=== PATIENT | female | born 1990 | race Caucasian/White ===

== ENCOUNTER 2017-06-27 10:55 | Emergency (ER) | payer MEDICAID ==
[2017-06-27] MEDS ORDERED: Dextrose 5%/Lactated Ringer's 1,000 ML IV SCH (11:30)
[2017-06-27 11:38] LABS: BASO % 0.5 % (0.0-2.0); EOS # 0.3 K/uL (0.0-0.7); EOS % 6.6 % (0.0-4.0); HEMATOCRIT 33.5 % (34.0-47.0); LYMPH # 1.5 K/uL (1.0-4.3); LYMPH % 29.6 % (20.0-40.0); MEAN CELL VOLUME 75.2 fL (81.0-99.0); MEAN CORPUSCULAR HEMOGLOBIN 24.2 pg (27.0-31.0); MEAN CORPUSCULAR HGB CONC 32.1 g/dL (33.0-37.0); MONO # 0.6 K/uL (0.0-0.8); MONO % 11.2 % (0.0-10.0); NRBC % 0.1 % (0.0-2.0); RED CELL DISTRIBUTION WIDTH 15.6 % (11.5-14.5); WHITE BLOOD COUNT 5.1 K/uL (4.8-10.8)
[2017-06-27 11:49] LABS: CHLORIDE 105 mmol/L (98-107)
[2017-06-27 11:50] LABS: POTASSIUM 3.3 mmol/L (3.6-5.2); SODIUM 134 mmol/L (132-148)
[2017-06-27 11:52] LABS: ALB/GLOB RATIO 0.8 (1.0-2.1); BILIRUBIN,DIRECT 0.3 mg/dL (0.0-0.4); BILIRUBIN,TOTAL 0.4 mg/dL (0.2-1.3); CARBON DIOXIDE 22 mmol/L (22-30); GFR AFRICAN-AMERICAN > 60; TOTAL PROTEIN 6.5 g/dL (6.3-8.3)
[2017-06-27 11:53] LABS: ALKALINE PHOSPHATASE 154 U/L (38-126); ALT/SGPT 31 U/L (9-52); AST/SGOT 23 U/L (14-36); BLOOD UREA NITROGEN 4 mg/dL (7-17); CALCIUM 7.8 mg/dl (8.6-10.4); GLUCOSE,RANDOM 70 mg/dL (65-105)
--- NOTE | 2017-06-27 12:57 | OBHP ---
Datetime: 06/27/2017 12:56 FHR - Baseline A Provider: 130 Contraction Comments Provider: none Vital Signs Provider: Reviewed; Within Normal Limits NICHD Variability Prov Fetus A: Moderate 6-25bpm NICHD Accel Fetus A IP Provider: [id number] FHR Category Provider Fetus A: Category I Datetime: 06/27/2017 10:58 IP Adm Impression: Term, intrauterine ; No Active Labor; Intact Membranes IP Admit Plan: Observation/Evaluation Admit Comment, IP Provider: Patient is a 27 year old at 39w0d gestation (BRANDO of 07/04/17 based on first trimester US) who presents with painful contractions since last night and LOF this morning. Patient reports that last night, she started to experience painful contractions with this pain radiat ing to her back. She "dealt" with this pain overnight but this morning when getting dressed, she noti neeraj clear fluid in her undergarments and then decided that she should be evaluated. She denies vagina l bleeding and endorses positive movement. She reports no complications with this but does endorse an itchy rash on her lower extremities since she became . She denies fever, chi lls, headache, changes in vision, chest pain, palpitations, SOB, cough, N/V, diarrhea, burning/pain w ith urination, or any seizures. OB History: Patient of Dr. 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 Stable, afebrile 2. Observation and evaluation: No signs of active labor, patient to walk for 30mins and reassess 3. Bilateral LE rash: R/O cholestasis (F/U CBC, CMP, liver profile and Bile acids) 4. EFM and TOCO 5. F/U US 6. Plans discussed with attending Tai Avery DO, PGY-1 dr jose antonio thrasher and belkis. Pelvic Type - PN: Adequate Extremities - PN: Normal Abdomen - PN: Normal Lungs - PN: Normal Heart - PN: Normal Neurologic - PN: Normal HEENT - PN: Normal General - PN: Normal Membranes, Provider: Intact Comments, ACOG Physical Exam: General: NAD HEENT: ATNC Cardio: RRR w/o rubs, gallops or murmurs Pulm: CTAB Abdomen: soft, gravid Extremities: -edema, 2+ peripheral pulses, erythematous puritic lesions diffusely on lower extremi ties SVE: closed cervix Speculum: - pooling of fluids, nitrazine test negative FHR: Gestation - Est Wks by US: 39.0 Pool Provider: Negative Nitrazine Provider: Negative IP Hx Assessment: The History has been Reviewed and is Current IP Chief Complaint: Uterine contractions; Suspected ruptured membranes Dilatation, Provider: 0 Effacement, Provider: 0 Genitourinary Exam: Normal
--- NOTE | 2017-06-27 12:59 | OBDCSUM ---
Datetime: 06/27/2017 12:58 Discharged to, Provider: Home Follow up at, Provider: friday Follow up in weeks, Provider: clinic Discharge Comment, Provider: dc home labor ins given po hyra f/u in clinic on adry Discharge Diagnosis Prov Other: 39weeks r/o rom rash poss puppbs
--- NOTE | 2017-06-27 12:59 | OBHP ---
Datetime: 06/27/2017 12:56 Admit Comment, IP Provider: pt wa examined at bed side. feels better. pt had rash on the belly. all blood test no ivf given plan dc home labor ins given po hyra f/u in clinic on amena
[2017-06-27 21:31] VITALS: BP 108/62; PULSE 78
== END 2017-06-27 12:30 | disposition home or self-care (01) ==
LOC: C.EROB 10:55
DX: O60.03 Preterm labor without delivery, third trimester (principal); Z3A.39 39 weeks gestation of pregnancy
CPT/HCPCS: 80053; 82248; 83789; 85025; 99283; J7120

== ENCOUNTER 2017-07-03 03:46 | Inpatient (IN) | payer MEDICAID ==
--- NOTE | 2017-07-03 04:24 | OBADHP ---
Datetime: 07/03/2017 04:20 Admit Comment, IP Provider: at 39.6weeeks came with c/o ctxs started in am, irrg 8/10, no vbm,l of,+fm. obhx primi pmh den med pnv all nkda psh den soch de ve 3-4/100/-2 a/p at 39+weeks in labor admit to l_d npo/ivf labs pain brenda cont lady and efm anticipate Pelvic Type - PN: Adequate Extremities - PN: Normal Abdomen - PN: Normal Back - PN: Normal Breast - PN: Normal Lungs - PN: Normal Heart - PN: Normal Thyroid - PN: Normal Neurologic - PN: Normal HEENT - PN: Normal General - PN: Normal FHR - Baseline A Provider: 130 Contraction Comments Provider: q1-4 Comments, ACOG Physical Exam: gravid,non tender ext no edema,no calf ten IP Hx Assessment: The History has been Reviewed and is Current Vital Signs Provider: Reviewed; Within Normal Limits IP Chief Complaint: Uterine contractions NICHD Variability Prov Fetus A: Moderate 6-25bpm NICHD Accel Fetus A IP Provider: [id number] FHR Category Provider Fetus A: Category I Dilatation, Provider: 4 Effacement, Provider: 100 Station, Provider: -2 Genitourinary Exam: Normal DTRs - PN: Normal EGA AdmitDate IP: 39.6 IP Adm Impression: Term, intrauterine ; Active labor IP Admit Plan: Admit to unit; Initiate labor protocol Datetime: 06/27/2017 10:58 Membranes, Provider: Intact Gestation - Est Wks by US: 39.0 Pool Provider: Negative Nitrazine Provider: Negative
[2017-07-03 04:26] VITALS: BMI 34.0
[2017-07-03] MEDS ORDERED: Lactated Ringer's 1,000 ML IV SCH (04:30)
[2017-07-03 04:40] LABS: BASO % 0.7 % (0.0-2.0); EOS # 0.3 K/uL (0.0-0.7); EOS % 5.4 % (0.0-4.0); HEMATOCRIT 35.3 % (34.0-47.0); LYMPH # 1.6 K/uL (1.0-4.3); MEAN CELL VOLUME 75.4 fL (81.0-99.0); MEAN CORPUSCULAR HEMOGLOBIN 23.6 pg (27.0-31.0); MEAN CORPUSCULAR HGB CONC 31.3 g/dL (33.0-37.0); MEAN PLATELET VOLUME 9.5 fL (7.2-11.7); MONO # 0.6 K/uL (0.0-0.8); MONO % 10.7 % (0.0-10.0); NRBC % 0.1 % (0.0-2.0); RED CELL DISTRIBUTION WIDTH 15.5 % (11.5-14.5); WHITE BLOOD COUNT 5.8 K/uL (4.8-10.8)
[2017-07-03] MEDS ORDERED: Bupivacaine 0.125%/FentaNYL 200 ML EPI ONE (04:41)
[2017-07-03 04:54] LABS: BILIRUBIN,TOTAL 0.6 mg/dL (0.2-1.3); CALCIUM 7.7 mg/dl (8.6-10.4); GFR AFRICAN-AMERICAN > 60; GLUCOSE,RANDOM 70 mg/dL (65-105); TOTAL PROTEIN 7.1 g/dL (6.3-8.3)
[2017-07-03 05:03] LABS: ALB/GLOB RATIO 0.8 (1.0-2.1); ALKALINE PHOSPHATASE 171 U/L (38-126); ALT/SGPT 28 U/L (9-52); AST/SGOT 37 U/L (14-36); BLOOD UREA NITROGEN 6 mg/dL (7-17); CARBON DIOXIDE 20 mmol/L (22-30); CHLORIDE 107 mmol/L (98-107); POTASSIUM 3.7 mmol/L (3.6-5.2); SODIUM 135 mmol/L (132-148)
[2017-07-03 05:11] LABS: RBC URINE 1 /hpf (0-3); URINE BILIRUBIN NEGATIVE (NEGATIVE); URINE BLOOD 1+ (NEGATIVE); URINE COLOR Yellow (YELLOW); URINE GLUCOSE (UA) NORMAL (Normal); URINE KETONE NEGATIVE (NEGATIVE); URINE LEUKOCYTE ESTERASE NEG Leu/uL (Negative); URINE PROTEIN NEGATIVE (NEGATIVE); URINE UROBILINOGEN NORMAL mg/dL (0.2-1.0); WBC URINE 3 /hpf (0-5)
[2017-07-03] MEDS ORDERED: Oxycodone/Acetaminophen 5/325 mg Tab PO PRN ×2 (11:04)
--- NOTE | 2017-07-03 11:37 | OBDS ---
DELIVERY PERSONNEL Nurse Application Programmer Analyst Certified: N/A Delivery Doctor: Elaine Ansari MD Scrub Nurse: N/A Casing Running Machine Tender: Anahy Luevano RN Anesthesiologist: N/A Cloth Mercerizer Operator: N/A Resident: Sherita Bauer DO MATERNAL INFORMATION Delivery Anesthesia: Epidural Medications in Delivery: Methergine; Hemabate; Cytotec Estimated Blood Loss (ml): 500 Placenta Cultured: No Maternal Complications: Hemorrhage RN Comments: Tasia Fowler, RN present for delivery. Nursing students, Estevan Wilson and Shaila Casper present in room for delivery. Pt.'s significant other at bedside. Provider Comments: of a faml infant from [facility].Body and shoulders delivered without diffi culty. Cord clamped and cut.cord blood collected.Placenta sponatneosuly delivered.Atonic uterus noted ..Pitocin mixed in crystalloids started.Metehrgine 0.2mg im given as well as hemabatae given.Fundus n ote dto be firm and bleeidng average/Second degree perineal laceration and left periurethral lacerat ion repaired with 2-0 chromic.fundus firm.patient stable LABOR SUMMARY EDC: 07/04/2017 00:00 No. Babies in Womb: 1 Attempted: No Labor Anesthesia: Epidural LABOR INFORMATION Reason for Induction: Not Applicable Onset of Labor: 07/03/2017 04:00 Complete Dilatation: 07/03/2017 09:20 Oxytocin: N/A Group B Beta Strep: Negative Antibiotics # of Doses: 00 Antibiotics Time of Last Dose: N/A Steroids Given: None Reason Steroids Not Administered: Not Applicable MEMBRANES Membranes Rupture Method: Spontaneous Rupture of Membranes: 07/03/2017 09:20 Length of Rupture (hrs): 1.08 Amniotic Fluid Color: Bloody Amniotic Fluid Amount: Moderate Amniotic Fluid Odor: Normal STAGES OF LABOR Stage 1 hrs: 5 Stage 1 min: 20 Stage 2 hrs: 1 Stage 2 min: 5 Stage 3 hrs: 0 Stage 3 min: 15 Total Time in Labor hrs: 6 Total Time in Labor min: 40 VAGINAL DELIVERY Laceration Extension: Second Degree Laceration Type: Perineal; Periurethral Laceration Repair: Yes Laceration Repair Note: second degree perineal laceraion and left periurethral laceration repaired w ith 2-0 chromic Initial Vag Sponge Count: 20 Final Vag Sponge Count: 20 Initial Vag Sharps Count: 2 Final Vag Sharps Count: 2 Sponge Count Correct: Yes; Vaginal Sweep Performed Sharps Count Correct: Yes BABY A INFORMATION Infant Delivery Date/Time: 07/03/2017 10:25 Method of Delivery: Vaginal Born in Route : No : N/A Forceps: N/A Vacuum Extraction: N/A Shoulder Dystocia : No SHOULDER DYSTOCIA BABY A Delivery Date/Time: 07/03/2017 10:25 PRESENTATION/POSITION BABY A Presentation: Cephalic Cephalic Presentation: Vertex Vertex Position: Left Occipital Anterior Breech Presentation: N/A PLACENTA INFORMATION BABY A Placenta Delivery Time : 07/03/2017 10:40 Placenta Method of Delivery: Spontaneous Placenta Status: Delivered SCORES BABY A Heart Rate 1 min: >100 bpm Resp Effort 1 min: Good Cry Reflex Irritability 1 min: Cough or Sneeze or Pulls Away Muscle Tone 1 min: Active Motion Color 1 min: Body [place], Extremities Blue Resuscitation Effort 1 min: Tactile Stimulation SCORE 1 MIN: 9 Heart Rate 5 min: >100 bpm Resp Effort 5 min: Good Cry Reflex Irritability 5 min: Cough or Sneeze or Pulls Away Muscle Tone 5 min: Active Motion Color 5 min: Body [place], Extremities Blue Resuscitation Effort 5 min: Tactile Stimulation SCORE 5 MIN: 9 INFANT INFORMATION BABY A Gestational Age at Delivery: 39.6 Gestational Status: Term Infant Outcome : Liveborn Condition : Stable Sex: Female IDENTIFICATION/MEDS BABY A ID Band Number: [id number] ID Band Location: Left Leg; Left Arm Sensor Applied: Yes Sensor Number: [id number] Sensor Location : Cord Clamp WEIGHT/LENGTH BABY A Infant Birthweight (gms): 4055 Weight (lb): 8 Weight (oz): 15 Infant Length Inches: 21.00 Length cms: 53.3 CORD INFORMATION BABY A No. Cord Vessels: 3 Nuchal Cord : N/A Cord Blood Taken: Yes Infant Suction: Mouth; Nose ASSESSMENT BABY A Complications: Meconium Physical Findings at Delivery: Caput Succedaneum Physical Findings Other: Terminal meconium Respirations: Appears Normal [place]/ALS Called : No Care By: Tasia Fowler RN Transferred To: Remains with Mother
[2017-07-03] MEDS: cefOXitin IV 2 gm in Dextrose 2 GM/50 ML BAG IVPB SCH ×2 (13:56→21:12)
[2017-07-03] MEDS: Hydrocortisone 2.5% Rectal Cream(30 gm) PR SCH ×2 (19:30→20:21)
[2017-07-04] MEDS: Benzocaine/Menthol 20%-0.5% Topical Spray (60 ml) TOP SCH ×3 (05:26→18:25)
[2017-07-04] MEDS: cefOXitin IV 2 gm in Dextrose 2 GM/50 ML BAG IVPB SCH (05:28)
[2017-07-04 08:21] LABS: BASO # 0.1 K/uL (0.0-0.2); BASO % 0.6 % (0.0-2.0); EOS # 0.3 K/uL (0.0-0.7); EOS % 3.3 % (0.0-4.0); HEMATOCRIT 29.2 % (34.0-47.0); LYMPH % 21.4 % (20.0-40.0); MEAN CELL VOLUME 75.1 fL (81.0-99.0); MEAN CORPUSCULAR HEMOGLOBIN 24.6 pg (27.0-31.0); MEAN CORPUSCULAR HGB CONC 32.7 g/dL (33.0-37.0); MEAN PLATELET VOLUME 9.6 fL (7.2-11.7); MONO % 10.8 % (0.0-10.0); NRBC % 0.1 % (0.0-2.0); RED CELL DISTRIBUTION WIDTH 15.5 % (11.5-14.5)
[2017-07-04 08:31] LABS: WHITE BLOOD COUNT 9.5 K/uL (4.8-10.8)
[2017-07-04] MEDS: Hydrocortisone 2.5% Rectal Cream(30 gm) PR SCH ×2 (10:45→18:22)
--- NOTE | 2017-07-05 03:02 | OBPPN ---
Datetime: 07/04/2017 07:28 PP Pain Prov: Within normal limits PP Nausea Prov: Denies PP Flatus Prov: Yes PP BM Prov: Yes PP Heart Prov: Normal PP Lungs Prov: Normal PP Abdomen/Uterus Prov: Normal PP Lochia Prov: Normal PP Extremities Prov: Normal PP Progress Prov: Normal PP Comments Phys Exam Prov: Abdomen: Soft, mildly tender. Fundus is firm and at the level of the umb ilicus PP Impression Prov: Normal progression PP Plan Prov: Continue present management PP Progress Note Prov: Patient was seen and examined at bedside. Patient states that she is doing we ll and pain is well-controlled. Patient admits to mild lochia, urinating without difficulty, passing flatus and had a bowel movement. Patient is tolerating diet and ambulating. Patient denies fever, chi lls, nausea and vomiting. Patient is planning on . Vital sign: F/u VS Physical Examination: Gen: AAOx3, NAD Cardio: RRR, normal S1, S2 Pulm: CTA bilaterally Abdomen: Soft, mildly tender. Fundus is firm and at the level of the umbilicus : laceration repair is healing well, mild lochia Ext: No edema, no cyanosis and no clubbing Labs: 5.8>11.0/35.3<167 f/u am CBC O positive, Rubella Immune A/P: 27 year old at 39.6 weeks, s/p with a second degree and periurethral laceration, PP D#1 1. Stable, afebrile 2. F/u am CBC 3. Pain is well-control: Motrin and percocet 4. Encourage hydration and ambulation 5. Encourage breast feeding 6. Continue routine posr- care 7. Anticipate discharge tomorrow 8. Plans discussed with attending Mario Alberto Bauer DO, PGY-1 Attending Note: patient was evaluated 07/04/17 at 1735 hours: no change in patient's condition as documented above. I agree with and confirmed the above.
--- NOTE | 2017-07-05 07:49 | OBDCSUM ---
Datetime: 07/05/2017 07:31 Discharged to, Provider: Home Follow up at, Provider: Clinic Disch Instr Activity: Normal activity; May be up to bathroom; May be up for meals; May Shower Disch Instr Diet: Regular Discharge Instructions, Provider: Routine instructions given Discharge Diagnosis, Provider: Term Delivered Discharge Time: 06/28/2017 07:31 Follow up in weeks, Provider: 6 weeks Disch Referrals: None Contraception discussed, Prov: Yes Disch Activity Restrictions: No exercising; No lifting; No sexual activity; Nothing in vagina - Inte rcourse, tampons, douche Discharge Comment, Provider: Pelvic rest and nothing per vagina for 6 weeks OTC motrin and tylenol for pain control F/u in the clinic in 6 weeks Continue hydration and ambulation Continue breast feeding Continue PNV for 6-8 weeks Please return to the hospital or call your provider, if symptoms for fever, chills, heavy/abnormal vaginal bleeding and discharge. Discharge Diagnosis Prov Other: Discharge diagnosis: Contraception after Delivery: Undecided
--- NOTE | 2017-07-05 07:49 | OBPPN ---
Datetime: 07/05/2017 07:17 PP Nausea Prov: Denies PP Flatus Prov: Yes PP BM Prov: Yes PP Heart Prov: Normal PP Lungs Prov: Normal PP Abdomen/Uterus Prov: Normal PP Lochia Prov: Normal PP Extremities Prov: Normal PP Progress Prov: Normal PP Comments Phys Exam Prov: Abdomen: Soft, non-tender, fundus is firm and slightly below the umbilic us PP Impression Prov: Normal progression PP Plan Prov: Discharge PP Progress Note Prov: Patient was seen and examined at bedside. Patient states that she is doing we ll and pain is well-controlled. Patient admits to mild lochia, urinating without difficulty, passing flatus and had a bowel movement. Patient is tolerating diet and ambulating. Patient denies fever, chi lls, nausea, vomiting and calf tenderness. Patient is . Vital sign: Temp: 97.1 Physical Examination: Gen: AAOx3, NAD Cardio: RRR, normal S1, S2 Pulm: CTA bilaterally Abdomen: Soft, mildly tender. Fundus is firm and slighly below the umbilicus : laceration repair is healing well, mild lochia Ext: No edema, no cyanosis and no clubbing Labs: 5.8>11.0/35.3<167 9.5>9.5/29.2<138 O positive, Rubella Immune A/P: 27 year old at 39.6 weeks, s/p with a second degree and periurethral laceration, PP D#2 1. Stable, Afebrile 2. Pain well-controlled 3. Encourage hydration and ambulation 4. Encourage breast feeding 5. Discharge today: Pelvic rest and nothing per vagina for 6 weeks, OTC motrin and tylenol for neeraj n control, f/u in the clinic, continue hydration and ambulation, continue breast feeding, continue PN V for 6-8 weeks. 6. Continue routine post- care 7. Plans discussed with attending Mario Alberto Bauer DO, PGY-1 Patient examined.agree with resident exam, assessment and plan Vital Signs Provider PP: Reviewed; Within Normal Limits
[2017-07-05 08:17] VITALS: BP 113/62; PULSE 70; RESP 18; TEMP 97.4; O2SAT 98
== END 2017-07-05 15:00 | disposition home or self-care (01) | DRG 775 ==
LOC: C.EROB 03:46 → C.4LDOR 04:00 → C.4D 04:25 → C.4M 14:55
PROVIDERS: ADMIT Obstetrics & Gynecology; ATTEND Obstetrics & Gynecology
PROC: 10E0XZZ Delivery of Products of Conception, External Approach (ICD-10-PCS; principal; 2017-07-03)
PROC: 0KQM0ZZ Repair Perineum Muscle, Open Approach (ICD-10-PCS; 2017-07-03)
PROC: 0UQMXZZ Repair Vulva, External Approach (ICD-10-PCS; 2017-07-03)
DX: O77.0 Labor and delivery complicated by meconium in amniotic fluid (principal); O62.2 Other uterine inertia; O70.1 Second degree perineal laceration during delivery; O71.82 Other specified trauma to perineum and vulva; Z3A.39 39 weeks gestation of pregnancy; Z37.0 Single live birth